=== PATIENT | female | born 1955 | race American Indian/Alaskan Native ===

== ENCOUNTER 2016-08-31 11:56 | Outpatient (CLI) | payer MEDICAID ==
--- NOTE | 2016-08-31 12:22 | XRay Report ---
CHEST 2 VIEWS INDICATION: Cough. COMPARISON: 10/06/2015 FINDINGS: PA and lateral chest radiographs again demonstrate normal cardiomediastinal silhouette and mild bilateral lower lung scarring. No pleural effusions or CHF. Mild thoracic spine degenerative changes. CONCLUSION: No acute disease, stable. Thank you for the opportunity to participate in this patient's care.
== END 2016-08-31 11:57 | disposition home or self-care (01) ==
LOC: XRAY 11:56
PROVIDERS: ATTEND Internal Medicine Hematology & Oncology
DX: R05 Cough (principal); M47.894 Other spondylosis, thoracic region
CPT/HCPCS: 71020

== ENCOUNTER 2017-04-06 08:08 | Outpatient (CLI) | payer MEDICAID ==
--- NOTE | 2017-04-06 11:14 | Mammography Report ---
BILATERAL MAMMOGRAM with CAD: HISTORY: Cancer screening. Comparison study is dated April 05, 2016. FINDINGS: There are scattered fibroglandular densities (approximately 25%-50% glandular). No mass, distortion, suspicious calcification, or skin change is seen. IMPRESSION: Negative mammogram. There is no mammographic evidence of malignancy. RECOMMENDATION: Follow-up per ACS guidelines. BI-RADS CATEGORY: 1 = Negative ACR BI-RADS MAMMOGRAPHIC CODES: 0 = Needs additional imaging evaluation; 1 = Negative; 2 = Benign; 3 = Probably benign; 4 = Suspicious; 5 = Malignant; 6 = Known biopsy-proven malignancy COMMENT: 1. Dense breast tissue, i.e., adenosis, fibrocystic changes, etc., may obscure an underlying neoplasm. 2. Approximately 10% of cancers are not detected with mammography. 3. A negative mammography report should not delay biopsy if a clinically suspicious mass is present. COMMENT: Patient follow-up letters are generated in [employer].
== END 2017-04-06 08:09 | disposition home or self-care (01) ==
LOC: MAMMO 08:08
PROVIDERS: ATTEND Internal Medicine Hematology & Oncology
DX: Z12.31 Encounter for screening mammogram for malignant neoplasm of breast (principal); I10 Essential (primary) hypertension; M06.9 Rheumatoid arthritis, unspecified
CPT/HCPCS: 77067; G0202

== ENCOUNTER 2017-09-19 09:25 | Outpatient (CLI) | payer MEDICAID ==
--- NOTE | 2017-09-19 11:05 | Mammography Report ---
BONE DENSITY STUDY: Osteoporosis screening. DEFINITIONS: BMD = Bone Mineral Density T-score = BMD related to mean peak bone mass of young adult (mean expressed in Standard Deviation) Z-score = Age matched BMD expressed in SD World Health Organization (WHO) Diagnostic Criteria Normal T-score > -1 SD Osteopenia T-score between -1 and -2.4 SD Osteoporosis T-score -2.5 SD or below FINDINGS: The weighted average BMD of lumbar spine L1-L4 is 0.978 with a T-score of -0.6. The weighted average BMD of the left hip is 0.980 with a T-score of 0.3. IMPRESSION: The patient's average T-score is diagnostic for normal bone density and low relative risk for fracture. Compared to prior exam in January 2013 there has been slight decrease in overall mineralization of the hip and lumbar spine. NOTE: BMD is not the only risk factor for fracture; also consider factors such as the patient's age, risk of falling, previous osteoporotic fracture, family history of osteoporotic fractures, current smoker, and low body weight. Leary's triangle is a region of interest in femur, predominantly of trabecular bone. It is not a true anatomic site, and [facility] does not recommend its use clinically.
== END 2017-09-19 09:26 | disposition home or self-care (01) ==
LOC: MAMMO 09:25
PROVIDERS: ATTEND Internal Medicine
DX: Z13.820 Encounter for screening for osteoporosis (principal)
CPT/HCPCS: 77080

== ENCOUNTER 2018-04-18 09:37 | Outpatient (CLI) | payer MEDICAID ==
--- NOTE | 2018-04-19 10:43 | Mammography Report ---
BILATERAL MAMMOGRAM: FINDINGS: There are scattered fibroglandular densities (approximately 25%-50% glandular). No mass, distortion, suspicious calcification, or skin change is seen. CAD was utilized. IMPRESSION: Negative mammogram. There is no mammographic evidence of malignancy. RECOMMENDATION: Follow-up per ACS guidelines. BI-RADS CATEGORY: 1 = Negative ACR BI-RADS MAMMOGRAPHIC CODES: 0 = Needs additional imaging evaluation; 1 = Negative; 2 = Benign; 3 = Probably benign; 4 = Suspicious; 5 = Malignant; 6 = Known biopsy-proven malignancy COMMENT: 1. Dense breast tissue, i.e., adenosis, fibrocystic changes, etc., may obscure an underlying neoplasm. 2. Approximately 10% of cancers are not detected with mammography. 3. A negative mammography report should not delay biopsy if a clinically suspicious mass is present. COMMENT: Patient follow-up letters are generated in [employer].
== END 2018-04-18 09:38 | disposition home or self-care (01) ==
LOC: MAMMO 09:37
PROVIDERS: ATTEND Internal Medicine Hematology & Oncology
DX: Z12.31 Encounter for screening mammogram for malignant neoplasm of breast (principal); I10 Essential (primary) hypertension; M19.90 Unspecified osteoarthritis, unspecified site
CPT/HCPCS: 77067

== ENCOUNTER 2018-05-04 09:53 | Outpatient (CLI) | payer MEDICAID ==
[2018-05-04 10:44] LABS: Blood Urea Nitrogen 12 mg/dL (7-17)
--- NOTE | 2018-05-04 16:42 | Cat Scan Report ---
FINAL REPORT EXAM: CT ABDOMEN PELVIS W CON HISTORY: Hodgkin lymphoma TECHNIQUE: Following oral administration of GI contrast and administration of IV contrast axial helical imaging was performed through the abdomen and pelvis with sagittal and coronal reformatted images obtained. Delayed axial helical imaging was also performed through the abdomen and pelvis. Comparison: None FINDINGS: There is pulmonary consolidation in both lung bases concerning for pulmonary infiltrates. The heart appears to be enlarged. There is the appearance of fatty infiltration/steatosis of the liver. The spleen, pancreas, kidneys and adrenal glands are normal in appearance. The bowel is normal caliber. The appendix is mildly enlarged with maximal dimension of 9.8 millimeters. There is no demonstration of periappendiceal inflammatory change. There is a moderate amount of stool in the ascending and transverse colon and cpzq-pz-fgnkwcau amount of stool in the remainder of the colon. There is no evidence of pneumoperitoneum. There is evidence of previous gastric surgery. The abdominal aorta is normal caliber. There is no evidence of pathologic intra-abdominal adenopathy by CT size criteria. There are mildly prominent mesenteric and right lower quadrant lymph nodes that measure 15 millimeters or smaller in size. The largest lymph node is in the right lower quadrant. The urinary bladder is moderately distended and unremarkable in appearance. The uterus and adnexae are unremarkable in appearance. The bony structures are notable for multiple level degenerative disc change in the mid and lower lumbar spine and in the lower thoracic spine. IMPRESSION: 1. Pulmonary consolidation in both lung bases concerning for pulmonary infiltrates. 2. The heart appears to be enlarged. 3. Evidence of fatty infiltration/steatosis of the liver. 4. The appendix is mildly enlarged (9.8 millimeters) without periappendiceal inflammatory change. In the proper clinical setting this could represent changes of appendicitis. 5. Mildly prominent mesenteric and right lower quadrant lymph nodes. 6. Moderate amount of stool in the ascending and transverse colon and mmqz-[id number]-aghlpnrj amount of stool in the remainder of the colon. 7. Spondylitic change lumbar spine and thoracic spine. Comparison with previous CT imaging studies is recommended.
--- NOTE | 2018-05-05 08:21 | Cat Scan Report ---
FINAL REPORT EXAM: CT CHEST W CON HISTORY: Hodgkin lymphoma TECHNIQUE: CT imaging obtained through the chest with contrast. Transaxial, Coronal and sagittal reformats are provided. Images of the abdomen and pelvis are included this exam but are reported separately. PRIORS: None. FINDINGS: Mediastinum is unremarkable. No lymphadenopathy. No central pulmonary embolism. Thoracic aorta is normal in course and caliber. No pneumothorax, effusion or focal airspace disease. There is linear bibasilar atelectasis/scarring. The central airways are patent. No bronchiectasis. Left thyroid nodule is suggested measuring up to 18 millimeters in greatest AP dimension. Please see CT abdomen of the same date. The superficial soft tissues are remarkable for right greater than left axillary lymphadenopathy measuring up to 2.7 x 1.8 cm in greatest transaxial dimensions on axial series 4, image 19. No acute bony abnormality or worrisome osseous lesions identified. Posterior fusion hardware at T1-T2 appears intact. IMPRESSION: Right greater than left axillary lymphadenopathy measures up to 2.7 x 1.8 cm. Suggested left thyroid nodule measures up to 18 millimeters. No mediastinal lymphadenopathy, pulmonary masses or focal airspace disease. Correlation with prior imaging is requested. Please see CT abdomen and pelvis of the same date.
== END 2018-05-04 09:54 | disposition home or self-care (01) ==
LOC: CT 09:53
PROVIDERS: ATTEND Internal Medicine Hematology & Oncology
DX: K76.0 Fatty (change of) liver, not elsewhere classified (principal); M47.895 Other spondylosis, thoracolumbar region; R91.8 Other nonspecific abnormal finding of lung field; K37 Unspecified appendicitis; I10 Essential (primary) hypertension
CPT/HCPCS: 36415; 71260; 74177; 82565; 84520

== ENCOUNTER 2018-10-10 09:56 | Outpatient (CLI) | payer MEDICAID | END 2018-10-10 09:57 | disposition home or self-care (01) | LOC: ECHO 09:56 | PROVIDERS: ATTEND Internal Medicine Hematology & Oncology | DX: I49.9 Cardiac arrhythmia, unspecified (principal); I05.9 Rheumatic mitral valve disease, unspecified; I10 Essential (primary) hypertension; M19.90 Unspecified osteoarthritis, unspecified site | CPT/HCPCS: 93306 ==

== ENCOUNTER 2019-04-20 09:55 | Outpatient (CLI) | payer MEDICAID ==
--- NOTE | 2019-04-23 11:14 | Mammography Report ---
BILATERAL DIGITAL SCREENING MAMMOGRAM WITH CAD INDICATION: Routine screening mammography. TECHNIQUE: Digital bilateral 2D mammography was obtained in the craniocaudal and mediolateral obliq ue projections. This examination was interpreted with the benefit of Computer-Aided Detection analysi s. COMPARISON: 04/18/2018 FINDINGS: Breast Density: The breasts are heterogeneously dense, which may obscure small masses. No mass, architectural distortion or suspicious calcifications. Scattered bilateral benign calcificat ions. IMPRESSION:No mammographic evidence of malignancy. BI-RADS Category 2: Benign. No mammographic evidence of malignancy. Recommend routine screening ma mmography in one year. A "normal" or negative report should not discourage follow up or biopsy of a clinically significant f inding. A written summary of these findings will be mailed to the patient. The patient will be entered into a mammography reporting system which will generate a reminder letter for the patient's next appointmen t at the appropriate interval. The [employer] recommends yearly mammograms starting at age 40 and continuing as l jaylon as a woman is in good health. Breast MRI is recommended for women with an approximate 20-25% or greater lifetime risk of breast cancer, including women with a strong family history of breast or ova agustin cancer or who have been treated for Hodgkin's disease. Signer Name: Harvey Jenkins MD Signed: 04/23/2019 11:10 AM Workstation Name: [id number]
== END 2019-04-20 09:56 | disposition home or self-care (01) ==
LOC: MAMMO 09:55
PROVIDERS: ATTEND Internal Medicine Hematology & Oncology
DX: Z12.31 Encounter for screening mammogram for malignant neoplasm of breast (principal); I10 Essential (primary) hypertension
CPT/HCPCS: 77067

== ENCOUNTER 2019-07-20 08:24 | Outpatient (CLI) | payer MEDICAID ==
--- NOTE | 2019-07-20 09:45 | XRay Report ---
BILATERAL HIP RADIOGRAPHS INDICATION / CLINICAL INFORMATION: PAIN COMPARISON: 07/29/2015 FINDINGS: BONES / JOINT(S): No acute fracture or subluxation. There is mild degenerative change in the hip join ts. There is some sclerotic change along the symphysis characteristic of some degenerative. SOFT TISSUES: No significant abnormality. ADDITIONAL FINDINGS: None. Signer Name: Jax Wilson MD Signed: 07/20/2019 9:40 AM Workstation Name: [id number]
--- NOTE | 2019-07-20 10:57 | Ultrasound Report ---
Transabdominal pelvic ultrasound INDICATION: Right lower quadrant pain FINDINGS: Uterus measures 8.5 x 4.4 x 4.6 cm and appears normal. Endometrial stripe is normal at 8 mm . Neither ovary is visualized likely due to atrophy. There is trace fluid in the endometrial cavity. No free fluid in the pelvis and no pelvic masses. IMPRESSION: Ovaries not seen. Otherwise no significant abnormality. Signer Name: Mian Flores MD Signed: 07/20/2019 10:53 AM Workstation Name: [email or web address]
== END 2019-07-20 08:25 | disposition home or self-care (01) ==
LOC: US 08:24
PROVIDERS: ATTEND Obstetrics & Gynecology
DX: R10.31 Right lower quadrant pain (principal); M25.551 Pain in right hip; M25.552 Pain in left hip
CPT/HCPCS: 73521; 76856

== ENCOUNTER 2021-02-26 10:40 | Outpatient (CLI) | payer MEDICAID ==
--- NOTE | 2021-02-26 11:08 | XRay Report ---
CHEST 2 VIEWS INDICATION / CLINICAL INFORMATION: Cough for 2 months. COMPARISON: 08/31/16. FINDINGS: SUPPORT DEVICES: None. HEART / MEDIASTINUM: The heart size and pulmonary vasculature are normal. LUNGS / PLEURA: There are minimal linear parenchymal opacities in both lower lung zones, unchanged. N o new pulmonary or pleural abnormality is seen. No pneumothorax. ADDITIONAL FINDINGS: There are new surgical changes involving the cervicothoracic spine without compl ication. There is moderate mid to lower thoracic spondylosis. IMPRESSION: No acute findings. Minimal parenchymal scarring in both lower lung zones is stable. Signer Name: Sam Stewart MD Signed: 02/26/2021 11:04 AM Workstation Name: [id number]
== END 2021-02-26 10:41 | disposition home or self-care (01) ==
LOC: XRAY 10:40
PROVIDERS: ATTEND Internal Medicine Hematology & Oncology
DX: R05 Cough (principal); M47.814 Spondylosis without myelopathy or radiculopathy, thoracic region
CPT/HCPCS: 71046